=== PATIENT | male | born 1945 | race Caucasian/White ===

== ENCOUNTER 2021-04-15 22:50 | Emergency (ER) | payer MEDICARE ==
[~2021-04-15] VITALS: Ht 200.7 cm; Wt 100.0 kg
[2021-04-15 23:14] LABS: HEMATOCRIT 43.2 % (39.0-50.0); IMMATURE GRANULOCYTES 0.9 % (0.0-5.0); MEAN CORPUSCULAR HGB 31.7 pG CALC (26.0-32.0); MEAN CORPUSCULAR HGB CONC 32.4 g/dL CAL (32.0-36.0); NEUT# 4.8 thou/uL (1.82-7.42); RED BLOOD COUNT 4.41 mill/uL (4.70-6.10); RED CELL DISTRI WIDTH 12.9 % (11.5-15.5)
[2021-04-15 23:34] LABS: ALKALINE PHOSPHATASE 49 u/l (38-126); ANION GAP 17 (6-22 (CALC)); BILIRUBIN, TOTAL 0.5 mg/dL (0.0-1.4); BUN 25 mg/dL (8-23); BUN/CREATININE RATIO 14 (12-20 (CALC)); CARBON DIOXIDE 22 mmol/l (22-30); CHLORIDE 102 mmol/l (95-108); CREATININE 1.8 mg/dL (0.7-1.3); ETHYL ALCOHOL 27 mg/dl (0-30); GFR 37 ML/MIN (>=60 (CALC)); GFR FOR AFR.AMER. 45 ML/MIN (>=60 (CALC)); MAGNESIUM 1.9 mg/dL (1.6-2.3); POTASSIUM 3.8 mmol/l (3.5-5.1); SGOT/AST 25 u/l (19-48); SODIUM 138 mmol/l (137-146)
[2021-04-15] MEDS ORDERED: CARB/LEVO1 TA5 PO (23:43)
[2021-04-15] MEDS ORDERED: DONEPEZIL10 MG PO (23:44)
[2021-04-15 23:45] LABS: MYOGLOBIN 81 ng/mL (0 - 121)
[2021-04-15] MEDS ORDERED: MONTELUKAST SOD10 MG PO (23:45)
[2021-04-15] MEDS ORDERED: ESCITALOPRAM OX10 MG PO (23:45)
[2021-04-15] MEDS ORDERED: GABAPENTIN100 MG PO (23:46)
[2021-04-15] MEDS ORDERED: LORAZEPAM0.5 MG PO (23:46)
[2021-04-15] MEDS ORDERED: WELLBUTRIN XL150 MG PO (23:47)
[2021-04-15] MEDS ORDERED: LIPITOR20 M1 PO (23:49)
[2021-04-15] MEDS ORDERED: NORVASC5 M1 PO (23:50)
[2021-04-15] MEDS ORDERED: OMEPRAZOLE DR40 MG PO (23:51)
[2021-04-15] MEDS ORDERED: SAW PALMETTO450 MG PO (23:52)
[2021-04-15] MEDS ORDERED: MULTI VIT PO (23:52)
[2021-04-16 00:04] LABS: TSH, 3RD GENERATION 6.64 uIU/mL (0.47 - 4.68)
[2021-04-16 01:07] LABS: URINE BILIRUBIN - DIPSTICK NEGATIVE (NEGATIVE); URINE BLOOD DIPSTICK NEGATIVE (NEGATIVE); URINE COLOR YELLOW; URINE GLUCOSE - DIPSTICK NEGATIVE (NEGATIVE); URINE KETONE NEGATIVE (NEGATIVE); URINE LEUK ESTERASE NEGATIVE (NEGATIVE); URINE PH 5.5 (4.5-8.0); URINE PROTEIN - DIPSTICK TRACE mg/dL (NEG-TRACE); URINE SPECIFIC GRAVITY 1.025; URINE UROBILINOGEN - DIPSTICK 0.2 E.U./dL (0.2)
[2021-04-16 01:10] LABS: URINE NITRITE - DIPSTICK NEGATIVE (Negative)
[2021-04-16 01:30] VITALS: BP 123/62
== END 2021-04-16 01:30 | disposition home or self-care (01) ==
LOC: ED 22:50
PROVIDERS: Family Medicine
DX: G90.3 Multi-system degeneration of the autonomic nervous system (principal); G20 Parkinson's disease; F02.80 Dementia in other diseases classified elsewhere, unspecified severity, without behavioral disturbance, psychotic disturbance, mood disturbance, and anxiety; I12.9 Hypertensive chronic kidney disease with stage 1 through stage 4 chronic kidney disease, or unspecified chronic kidney disease; N18.9 Chronic kidney disease, unspecified; F41.9 Anxiety disorder, unspecified

== ENCOUNTER 2022-05-15 15:53 | Emergency (ER) | payer MEDICARE ==
[2022-05-15] VITALS (8 sets, daily range): BP systolic 131–149; BP diastolic 84–107
[~2022-05-15] VITALS: Ht 200.7 cm; Wt 99.7 kg
[~2022-05-15 15:53] MED LIST: CARB/LEVO1 TA5 PO; DONEPEZIL10 MG PO; ESCITALOPRAM OX10 MG PO; GABAPENTIN100 MG PO; LIPITOR20 M1 PO; LORAZEPAM0.5 MG PO; MONTELUKAST SOD10 MG PO; MULTI VIT PO; NORVASC5 M1 PO; OMEPRAZOLE DR40 MG PO; SAW PALMETTO450 MG PO; WELLBUTRIN XL150 MG PO
[2022-05-15 16:25] LABS: HEMATOCRIT 46.9 % (39.0-50.0); HEMOGLOBIN 15.2 g/dl (14.0-18.0); IMMATURE GRANULOCYTES 0.3 % (0.0-5.0); MEAN CELL VOLUME 97.5 fL CALC (80.0-100.0); MEAN CORPUSCULAR HGB 31.6 pG CALC (26.0-32.0); MEAN CORPUSCULAR HGB CONC 32.4 g/dL CAL (32.0-36.0); NEUT# 8.6 thou/uL (1.82-7.42); RED BLOOD COUNT 4.81 mill/uL (4.70-6.10); RED CELL DISTRI WIDTH 12.5 % (11.5-15.5)
[2022-05-15 16:39] LABS: ALBUMIN 4.3 g/dL (3.2-5.0); BILIRUBIN, TOTAL 0.7 mg/dL (0.0-1.4); POTASSIUM 4.5 mmol/l (3.5-5.1); TOTAL PROTEIN 7.2 g/dL (6.3-8.2)
[2022-05-15 16:48] LABS: INTERNATIONAL NORMALIZED RATIO 0.9 RATIO (0.7-1.3); PROTHROMBIN TIME 9.9 SECONDS (9.0-12.5)
== END 2022-05-15 18:15 | disposition home or self-care (01) ==
LOC: ED 15:53
PROVIDERS: Nurse Practitioner
DX: S06.9X9A Unspecified intracranial injury with loss of consciousness of unspecified duration, initial encounter (principal); S63.501A Unspecified sprain of right wrist, initial encounter; S80.211A Abrasion, right knee, initial encounter; G62.9 Polyneuropathy, unspecified; I12.9 Hypertensive chronic kidney disease with stage 1 through stage 4 chronic kidney disease, or unspecified chronic kidney disease; N18.9 Chronic kidney disease, unspecified; G20 Parkinson's disease; F02.80 Dementia in other diseases classified elsewhere, unspecified severity, without behavioral disturbance, psychotic disturbance, mood disturbance, and anxiety; F41.9 Anxiety disorder, unspecified; V86.55XA Driver of 3- or 4- wheeled all-terrain vehicle (ATV) injured in nontraffic accident, initial encounter; Y93.I9 Activity, other involving external motion; Y92.821 Forest as the place of occurrence of the external cause